=== PATIENT | female | born 2000 | race Caucasian/White ===

== ENCOUNTER 2020-10-24 12:08 | Emergency (ER) | payer BC, OTHER ==
[~2020-10-24] VITALS: Ht 165.1 cm; Wt 69.3 kg
[~2020-10-24 12:08] MED LIST: CEFD300C37 PO
--- NOTE | 2020-10-24 12:23 | NUR ---
URINE CUP GIVEN.
[2020-10-24] MEDS ORDERED: ONDANSETRON ODT 4 MG PO ONE (12:30)
[2020-10-24 12:40] LABS: BASOPHILS % (AUTO) 0 % (0-1); EOSINOPHILS % (AUTO) 0 % (1-7); LYMPHOCYTES % (AUTO) 16 % (22-44); MEAN CORPUSCULAR HGB CONC 34.6 g/dL (32.4-35.8); MEAN PLATELET VOLUME 7.8 fL (7.4-10.4); MONOCYTES % (AUTO) 6 % (2-9); NEUTROPHILS % (AUTO) 78 % (42-75); PLATELET COUNT 273 x10^3/uL (130-400); RED BLOOD COUNT 5.13 x10^6/uL (3.82-5.3)
[2020-10-24 12:48] LABS: MICROSCOPIC AUTO
[2020-10-24 12:51] LABS: ALBUMIN 4.1 g/dL (3.4-5.0); ANION GAP 5 mmol/L (5-15); CALCIUM 9.4 mg/dL (8.5-10.1); CHLORIDE 106 mmol/L (98-107)
[2020-10-24 12:56] LABS: CREATININE 0.74 mg/dL (0.55-1.02)
--- NOTE | 2020-10-24 15:23 | NUR ---
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
[2020-10-24] MEDS ORDERED: ONDANSETRON ODT 4 MG ONE (15:27)
--- NOTE | 2020-10-24 15:46 | NUR ---
ERPA AT BEDSIDE FOR EVALUATION.
[2020-10-24] MEDS ORDERED: FAMOTIDINE 20 MG TABLET ONE (15:57)
[2020-10-24] MEDS ORDERED: FAMOTIDINE 20 MG TABLET PO ONE (16:00)
--- NOTE | 2020-10-24 17:07 | NUR ---
PATIENT SITTING IN [facility], CONNECTED TO MONITOR, VSS, WARM BLANKET PROVIDED. FRIEND AT BEDSIDE. WAITING FOR ULTRASOUND.
--- NOTE | 2020-10-24 17:17 | NUR ---
ASSISTANT PROFESSOR OF HISTORY AT BEDSIDE.
[2020-10-24 18:07] VITALS: BP 111/65
--- NOTE | 2020-10-24 18:19 | NUR ---
Patient given discharge instructions and prescriptions and they have confirmed that they understand the instructions. Patient ambulatory with steady gait. NAD, all questions answered appropriately, denies additional needs at this time. No personal belongings left in room after discharge.
== END 2020-10-24 18:53 | disposition home or self-care (01) ==
LOC: ED 18:47
DX: R19.7 Diarrhea, unspecified (principal); R11.0 Nausea; R10.13 Epigastric pain
CPT/HCPCS: 36415; 76700; 80048; 81001; 82040; 83690; 84703; 85025; 99284; Q0162